=== PATIENT | male | born 1980 | race Caucasian/White ===

== ENCOUNTER 2021-07-28 17:50 | Emergency (ER) | payer BC, SELFPAY ==
--- NOTE | ~2021-07-28 | XR_ITS ---
EXAMINATION: XR RIBS, RIGHT CLINICAL INFORMATION: Low pain after blunt trauma to right ribs COMPARISON: None TECHNIQUE: Single view chest with 3 additional views of the right ribs were obtained. FINDINGS: Lungs are clear. No consolidation, pneumothorax, or pleural effusion. The cardiomediastinal silhouette and pulmonary vasculature are normal. Osseous structures are unremarkable. Ribs are intact. No fractures are identified. XR/XR ribs RT min 3V w CXR1V IMPRESSION: Unremarkable examination.
[2021-07-28 17:55] VITALS: BP 170/76; PULSE 100; RESP 18; TEMP 36.6; O2SAT 99; BMI 25.7
--- NOTE | 2021-07-28 19:33 | ED_ITS ---
HPI - Extremity Problem General Chief complaint: Extremity Injury, Upper Stated complaint: Rib pain Time Seen by Provider: 07/28/21 19:04 Source: patient Mode of arrival: ambulatory Limitations: no limitations History of Present Illness HPI Narrative: Patient presents to ED for right-sided rib cage pain. Patient st ates last week while working on a Desk he hit his right lower rib onto the edge of a desk while trying to reach for an object and to break his fall. Patient states since then he has had pain in that area and worse on movement of torso. Patient denies any coughing up blood, calf pain, recent long travel, recent surgery, or any chest pain on inspiration. Patient denies any history of blood clots. Patient states history of rib fractures. Patient denies any chest pain, abdominal pain, flank pain, fever, chills, rectal bleeding, vomitting blood or shortness of breath. Related Data Previous Rx's Medication Instructions Recorded cyclobenzaprine 10 mg tablet 10 mg PO TID PRN #18 tab 07/28/21 naproxen 500 mg tablet 500 mg PO BID PRN #20 tab 07/28/21 Allergies Allergy/AdvReac Type Severity Reaction Status Date / Time amoxicillin [AMOXICILLIN] Allergy Unknown HIVES Verified 07/28/21 19:54 Penicillins [PCN] Allergy Unknown HIVES Verified 07/28/21 19:54 Sulfa (Sulfonamide Allergy Unknown RASH Verified 07/28/21 19:54 Antibiotics) [SULFA (SULFONAMIDE ANTIBIOTICS)] Review of Systems Review of Systems: Yes all other systems are reviewed and are negative Constitutional: Constitutional: Reports as per HPI and Reports no additional constitutional complaints Eyes: Eyes: Reports as per HPI and Reports no additional eye complaints ENT: Reports system reviewed and no additional complaints, except as documented and Reports as per HPI Cardiovascular: Cardiovascular: Reports as per HPI and Reports no additional cardiovascular complaints Comments: Right sided lower rib pain Respiratory: Respiratory: Reports as per HPI and Reports no additional respiratory complaints Gastrointestinal: Gastrointestinal: Reports as per HPI and Reports no addition al gastrointestinal complaints Genitourinary: Genitourinary: Reports no additional male genitourinary complaints and Reports as per HPI Musculoskeletal: Musculoskeletal: Reports no additional musculoskeletal complaints and Reports as per HPI Neurologic: Reports system reviewed and no additional complaints, except as documented and Reports as per HPI [facility] Social History Social History Advance Directives: No Advance Directives Information Provided: No Physical Exam Vital Signs: Vital Signs: Last Vital Signs Temp 97.8 F 07/28/21 17:55 Pulse 100 07/28/21 17:55 Resp 18 07/28/21 17:55 BP 170/76 H 07/28/21 17:55 Pulse Ox 99 07/28/21 17:55 Body Mass Index 25.7 Const: General: cooperative, healthy appearing, comfortable, no acute distress, well developed, alert, awake and Physically active Orientation/consciousness: patient oriented x3 HENMT: Head: Yes normal to inspection, Yes No palpable skull fracture present, Yes normocephalic, Yes atraumatic and No abrasion Eyes: General: appearance normal, both eyes and all related structures Neck: Neck: Yes normal visual inspection, Yes full ROM, Yes no lymphadenopathy , Yes no meningeal signs, Yes trachea midline, Yes supple and No tender Chest: Chest palpation & inspection: normal inspection of the chest Chest/axillae images: 1. Positive for right lower rib tenderness on palpation and movement of torso and right upper extremity. Negative for any ecchymosis, erythema. Bilateral clear lung sounds. Resp: Effort & Inspection: normal respiratory effort and able to speak in complete sentences Auscultation: clear to auscultation bilaterally Cardio: Jugular venous distension: no JVD Heart sounds: S1 normal heart sound present and S2 normal heart sound present GI: Inspection: Yes normal to inspection and No abdominal wall ecchymosis Palpation (GI): Soft to palpation, not firm, nontender, no guarding and not rigid : General: No CVA tenderness and Yes no CVA tenderness Back/Spine/Pelvis: Back: no CVA tenderness, No CVA tenderness and No back tenderness Skin: General skin exam: no rashes or lesions noted and elasticity normal Neuro: General: patient oriented x3, gait normal and no meningeal signs C ranial nerves: Yes CN's II-XII intact bilaterally Extrem: Other: Lower extremities negative for calf swelling, pitting edema, or erythema. General: Yes normal to inspection and Yes full ROM Psych: Appearance: grossly normal, well kempt and not disheveled Course Course Course Narrative: Patient sent for right-sided rib/chest x-ray. Presently not suspecting any pneumonia, PE, CHF exacerbation or heart attack. Reevaluation(s) Reevaluation #1: X-ray negative for any fracture. Patient will be discharged with pain medication muscle relaxer. Patient informed to follow-up with PCP. Time: 20:39 MDM - Extremity (Nontraumatic) MDM Narrative Medical decision making narrative: Muscular chest wall pain. Contusion Discharge Plan Discharge Clinical Impression: Contusion of right chest wall Patient Disposition: Home, Self-Care Instructions: Contusion in Adults (ED), Rib Contusion (ED) Additional Instructions: X-ray came back negative for fractures. History physical exam indicate contusion also muscle chest wall pain. You will be discharged with pain meds and muscle relaxer. Return to the ED immediately for coughing up blood, shortne ss of breath on exertion, severe chest pain on inspiration, dizziness, headache, leg swelling, calf pain, passing out, dizziness, weakness, fever, chills, or any other concerning symptoms. Prescriptions: New naproxen 500 mg tablet 500 mg PO BID PRN (Reason: pain) Qty: 20 RF: 0 cyclobenzaprine 10 mg tablet 10 mg PO TID PRN (Reason: pain) Qty: 18 RF: 0 Interventions: ED Discharge Assessment Last Done: 07/28/21 20:49 Discharge Date/Time: 07/28/21 20:54 Print Language: Portuguese
[2021-07-28] MEDS: Ibuprofen 800 MG TABLET PO (19:55)
== END 2021-07-28 20:54 | disposition home or self-care (01) ==
PROVIDERS: Emergency Provider Internal Medicine; PCP Registered Nurse
DX: S20.211A Contusion of right front wall of thorax, initial encounter (principal); W19.XXXA Unspecified fall, initial encounter; Y93.9 Activity, unspecified; Y92.9 Unspecified place or not applicable; Y99.9 Unspecified external cause status
CPT/HCPCS: 71101; 99283

== ENCOUNTER 2022-02-01 16:21 | Outpatient (REF) | payer BC, SELFPAY ==
--- NOTE | ~2022-02-01 | XR_ITS ---
EXAMINATION: XR HAND, LEFT CLINICAL INFORMATION: Open wound of finger. COMPARISON: None TECHNIQUE: PA, lateral, and oblique views of the left hand. FINDINGS: No radiopaque foreign body. No air in the soft tissue. Bone and joints are normal. No fracture or dislocation. XR/XR hand LT min 3V IMPRESSION: Normal left hand.
== END 2022-02-01 16:22 | disposition home or self-care (01) ==
LOC: HO.HMGCX 16:21
PROVIDERS: Visit Provider Internal Medicine
DX: S61.208A Unspecified open wound of other finger without damage to nail, initial encounter (principal)
CPT/HCPCS: 73130

== ENCOUNTER 2022-07-23 23:12 | Emergency (ER) | payer BC, SELFPAY ==
[2022-07-23 23:29] VITALS: BP 130/77; PULSE 56; RESP 17; TEMP 36.3; O2SAT 99; BMI 32.1
--- NOTE | 2022-07-24 00:05 | ED.EXTPRO ---
HPI - Extremity Problem General Chief complaint: Extremity Problem Stated complaint: infection on finger Time Seen by Provider: 07/24/22 00:05 Source: patient Mode of arrival: ambulatory Limitations: no limitations History of Present Illness HPI Narrative: 42-year-old male presents with paronychia to the left 5th finger. He was treated at urgent care, given clindamycin yesterday, however the swelling has worsened. He does not report fevers or chills, or loss of sensation. MD Complaint: extremity pain and extremity swelling Onset (ago): day(s) (3) Pain Consistency: constant Location: left and upper extremity (Fifth finger) Severity scale (1-10): 4 Quality: burning and aching Radiation: none Relieving factors: nothing Exacerbating factors: range of motion and palpation Associated symptoms: denies other symptoms Related Data Previous Rx's Medication Instructions Recorded cyclobenzaprine 10 mg tablet 10 mg PO TID PRN pain #18 tabs 07/28/21 naproxen 500 mg tablet 500 mg PO BID PRN pain #20 tabs 07/28/21 levofloxacin 500 mg tablet 500 mg PO DAILY #7 tabs 02/01/22 doxycycline monohydrate 100 mg 100 mg PO BID 5 days #10 caps 07/24/22 capsule Allergies Allergy/AdvReac Type Severity Reaction Status Date / Time amoxicillin [AMOXICILLIN] Allergy Unknown HIVES Verified 07/06/22 15:49 Penicillins [PCN] Allergy Unknown HIVES Verified 07/06/22 15:49 Sulfa (Sulfonamide Allergy Unknown RASH Verified 07/06/22 15:49 Antibiotics) [SULFA (SULFONAMIDE ANTIBIOTICS)] Review of Systems Review of Systems: Constitutional: No Fever, No Chills ENT/Mouth: No Ear Pain, No Hoarseness, No sore throat Eyes: No Eye Pain, No Swelling, No Redness, No Foreign Body Cardiovascular: No Chest Pain, No SOB Respiratory: No Cough, No Dyspnea Gastrointestinal: No Nausea, No Vomiting, No Diarrhea, No abdominal Pain Genitourinary: No Dysuria, No Hematuria Musculoskeletal: positive left 5th finger pain, No Myalgias, No Joint Swelling Skin: No Skin lacerations, No rash Neuro: No Weakness, No Numbness, No Paresthesias, No Loss of Consciousness, No Dizziness, No Headache Psych: No Anxiety/Panic, No Depression Heme/Lymph: no easy bruising, no Lymphadenopathy Endocrine: No Polyuria, No Polydipsia Yes all other systems are reviewed and are negative [facility] Past Medical History Attestation statement: The following information was validated with the patient. Source: old records reviewed Social History Social History Advance Directives: No Physical Exam Vital Signs: Vital Signs: Last Vital Signs Temp 97.3 F 07/23/22 23:29 Pulse 56 07/23/22 23:29 Resp 17 07/23/22 23:29 BP 130/77 07/23/22 23:29 Pulse Ox 99 07/23/22 23:29 O2 Del Method 07/23/22 23:29 BMI result Body Mass Index 32.1 Appearance: Alert. Oriented X3. No acute distress. Eyes: Pupils equal, round and reactive to light. ENT: Pharynx normal. Neck: Normal inspection. Neck supple. CVS: Normal heart rate and rhythm. Pulses normal. Respiratory: No respiratory distress. Breath sounds normal. Abdomen: Soft and nontender. Skin: Left 5th finger paronychia, Skin warm and dry. Normal skin color. Normal skin turgor. Extremities: Gait well balanced well coordinated. Neuro: No motor deficit. No sensory deficit. Cranial nerves 2-12 intact. Course Course Course Narrative: 42-year-old male presents with paronychia to the left 5th finger. He is on clindamycin however had does have a history of Crohn's and C diff in the past. I will discontinue this medication and give him doxycycline. Paronychia was drained with an 11 blade, patient did not require any anesthetic. Approximately 1 mL purulent drainage from the site. Patient will keep the area clean and dry, and use Epsom salt soaks to help reduce infection. Patient tolerated procedure well. Verbalized understanding of signs and symptoms indicating need for emergent intervention. MDM - Extremity (Nontraumatic) MDM Narrative Medical decision making narrative: Paronychia Differential Diagnosis Differential diagnosis: Likely cellulitis Medical Records Attestation: I reviewed the patient's medical records. Procedures Abscess I/D Site: hand Side (if applicable): left (Fifth finger) Technique: incised with blade Amount of fluid expressed (mL): 1 Sent for culture/gram staining?: No Irrigation: No Packing used?: none Discharge Plan Discharge Clinical Impression: Paronychia Patient Disposition: Home, Self-Care Instructions: Paronychia (ED) Additional Instructions: You were evaluated for paronychia to the left 5th finger. We incised and drained the paronychia. Please take doxycycline 100 mg every 12 hours for the next 5 days Use Epsom salt soaks to help reduce pain and swelling. Thank you for choosing this emergency department for evaluation. Please follow-up with primary care physician as needed. Return to the emergency department for any new, concerning, or worsening symptoms. Prescriptions: New doxycycline monohydrate 100 mg capsule 100 mg PO BID 5 Days Qty: 10 0RF No Action naproxen 500 mg tablet 500 mg PO BID PRN (Reason: pain) Qty: 20 0RF cyclobenzaprine 10 mg tablet 10 mg PO TID PRN (Reason: pain) Qty: 18 0RF Rx Instructions: side effect is drowsiness. Do not take at work or while driving. levofloxacin 500 mg tablet 500 mg PO DAILY Qty: 7 0RF
== END 2022-07-24 00:59 | disposition home or self-care (01) ==
PROVIDERS: Emergency Provider Emergency Medicine Emergency Medical Services
DX: L03.012 Cellulitis of left finger (principal)
CPT/HCPCS: 10060; 99283

== ENCOUNTER 2022-10-22 23:01 | Emergency (ER) | payer BC, SELFPAY ==
[2022-10-22 23:11] VITALS: BP 130/37; PULSE 70; RESP 16; TEMP 36.6; O2SAT 97; BMI 32.7
--- NOTE | 2022-10-23 00:25 | ED.URI ---
HPI - URI/Sore Throat General Chief Complaint: Dental/Oral Stated Complaint: Sores in throat Time Seen by Provider: 10/23/22 00:16 Source: patient Mode of arrival: ambulatory Limitations: no limitations History of Present Illness HPI Narrative: 42-year-old male presents for 1 week of sore throat and feeling of blisters and ulcerations in his mouth throat and tongue. Patient does have a history of Crohn's disease, is followed by [facility]. Patient does report pain with swallowing, but is able to manage secretions and can eat and drink without too much difficulty. He does not report any fevers, chills, abdominal pain, abdominal distention, melena, hematochezia, bright red blood per rectum or weight loss. MD elicited complaint: sore throat Pertinent past history: other (Crohn's) Onset (ago): week(s) (1) Consistency: constant Severity: moderate Description of mucous: clear Able to tolerate fluids by mouth: Yes Exacerbating factors: swallowing and speaking Relieving factors: nothing Associated symptoms: denies other symptoms Treatments prior to arrival: none Related Data Previous Rx's Medication Instructions Recorded cyclobenzaprine 10 mg tablet 10 mg PO TID PRN pain #18 tabs 07/28/21 naproxen 500 mg tablet 500 mg PO BID PRN pain #20 tabs 07/28/21 levofloxacin 500 mg tablet 500 mg PO DAILY #7 tabs 02/01/22 doxycycline monohydrate 100 mg 100 mg PO BID 5 days #10 caps 07/24/22 capsule lidocaine HCl 2 % mucosal solution 10 ml PO QID PRN mouth pain 5 days 10/23/22 (Lidocaine Viscous) #100 mL valacyclovir 1 gram tablet 1,000 mg PO Q8H 7 days #21 tabs 10/23/22 Allergies Allergy/AdvReac Type Severity Reaction Status Date / Time amoxicillin [AMOXICILLIN] Allergy Unknown HIVES Verified 10/22/22 23:14 Penicillins [PCN] Allergy Unknown HIVES Verified 10/22/22 23:14 Sulfa (Sulfonamide Allergy Unknown RASH Verified 10/22/22 23:14 Antibiotics) [SULFA (SULFONAMIDE ANTIBIOTICS)] Review of Systems Review of Systems: Constitutional: No Fever, No Chills ENT/Mouth: No Ear Pain, No Hoarseness, positive sore throat, positive ulcerations Cardiovascular: No Chest Pain, No SOB Respiratory: No Cough, No Dyspnea Gastrointestinal: No Nausea, No Vomiting, No Diarrhea, No abdominal Pain Genitourinary: No Dysuria, No Hematuria Musculoskeletal: No joint pain, No Myalgias, No Joint Swelling Skin: No Skin lacerations, No rash Neuro: No Weakness, No Numbness, No Dizziness, No Headache Yes all other systems are reviewed and are negative [facility] Past Medical History Attestation statement: The following information was validated with the patient. Source: old records reviewed Social History Social History Advance Directives: No Advance Directives Information Provided: Yes Physical Exam Vital Signs: Vital Signs: Last Vital Signs Temp 98 F 10/22/22 23:11 Pulse 70 10/22/22 23:11 Resp 16 10/22/22 23:11 BP 130/37 L 10/22/22 23:11 Pulse Ox 97 10/22/22 23:11 O2 Del Method 10/22/22 23:11 BMI result Body Mass Index 32.7 Appearance: Alert. Oriented X3. No acute distress. Eyes: Pupils equal, round and reactive to light. ENT: Pharynx erythematous, aphthous ulcers noted to tongue, buccal mucosa Neck: Normal inspection. Neck supple. No cervical lymphadenopathy. No mastoid tenderness. No vertebral tenderness. Nuchal rigidity. CVS: Normal heart rate and rhythm. Pulses normal. Respiratory: No respiratory distress. Breath sounds normal. Abdomen: Soft and nontender. Skin: Skin warm and dry. Normal skin color. Normal skin turgor. Extremities: Gait well-balanced well coordinated. Neuro: No motor deficit. No sensory deficit. Cranial nerves 2-12 intact. Course Course Course Narrative: 42-year-old male presents for evaluation for ulcerations and blisters with sore throat in his mouth for 1 week. Has a history of Crohn's, has not had ulcerations in his mouth in the past. Physical exam indicates pharyngeal erythema with aphthous ulcers. No nuchal rigidity, no cervical lymphadenopathy, no mastoid tenderness. Will order strep test. Will give lidocaine and Maalox which in swallow. : strep test is negative. Patient states to have significant relief from the lidocaine Maalox solution. Will treat for aphthous ulcers with valacyclovir for 1 week. Patient does understand that he must follow up with his security installation technician in [place] for Crohn's evaluation. Patient verbalized understanding of and agrees plan for discharge home. Verbalized understanding of signs and symptoms indicating need for emergent intervention. Medications Administered Discontinued Medications Generic Name Dose Route Start Last Admin Trade Name Freq PRN Reason Stop Dose Admin Al Hydroxide/Mg Hydroxide 30 ml 10/23/22 00:25 10/23/22 00:41 Magnesium Hydrox/Alum Hydrox 30 Ml Oral.Susp PO 10/23/22 00:26 30 ml ONCE ONE Administration Lidocaine HCl 15 ml 10/23/22 00:25 10/23/22 00:41 Lidocaine Hcl Viscous 2 % 15 Ml Solution MUCOUS MEM 10/23/22 00:26 15 ml ONCE ONE Administration Medical Decision Making Differential Diagnosis Differential Diagnoses: The differential diagnosis associated with the presentation includes Strep, aphthous ulcers, URI Lab Data MDM Lab Attestation statement: I reviewed the patient's lab results. External Record Review External record reviewed: Outpatient record Prescription Management I considered prescription management with: Pain Medication and Antiviral Chronic Conditions Patient?s care impacted by: Other (Crohn's) Discharge Plan Discharge Clinical Impression: Aphthous ulcer Patient Disposition: Home, Self-Care Instructions: Oral Mucositis (ED) Additional Instructions: You were evaluated for sore throat and ulcerations in her mouth. Please take valacyclovir 1000 mg 3 times a day for the next 7 days. Please drink plenty of fluids. Use lidocaine as needed for pain management. Side effects of this medication can include a blue tinge to your skin. If you note your skin to turn blue please return to the emergency department immediately. Follow-up with your security installation technician in [place] for Crohn's follow-up. Thank you for choosing this emergency department for evaluation. Please follow-up with primary care physician as needed. Return to the emergency department for any new, concerning, or worsening symptoms. Prescriptions: New valacyclovir 1 gram tablet 1,000 mg PO Q8H 7 Days Qty: 21 0RF lidocaine HCl [Lidocaine Viscous] 2 % solution 10 ml PO QID PRN (Reason: mouth pain) 5 Days Qty: 100 0RF Rx Instructions: Dispense quantity sufficient. No Action doxycycline monohydrate 100 mg capsule 100 mg PO BID 5 Days Qty: 10 0RF naproxen 500 mg tablet 500 mg PO BID PRN (Reason: pain) Qty: 20 0RF cyclobenzaprine 10 mg tablet 10 mg PO TID PRN (Reason: pain) Qty: 18 0RF Rx Instructions: side effect is drowsiness. Do not take at work or while driving. levofloxacin 500 mg tablet 500 mg PO DAILY Qty: 7 0RF
[2022-10-23] MEDS: Magnesium Hydrox/Alum Hydrox 30 ML ORAL.SUSP PO (00:41)
[2022-10-23] MEDS: Lidocaine HCl Viscous 2 % 15 ML SOLUTION MUCOUS MEM (00:41)
[2022-10-23 01:10] LABS: IDNOW Serial# 6674DD1D; Strep A Nucleic Acid Negative (Negative)
[2022-10-23] MEDS: valACYclovir HCL 1,000 MG TABLET 1000 MG PO (01:35)
== END 2022-10-23 01:45 | disposition home or self-care (01) ==
PROVIDERS: Nurse Practitioner Family; Emergency Provider Internal Medicine
DX: J02.9 Acute pharyngitis, unspecified (principal); K12.0 Recurrent oral aphthae; Z20.822 Contact with and (suspected) exposure to COVID-19; Z20.828 Contact with and (suspected) exposure to other viral communicable diseases; Z79.899 Other long term (current) drug therapy
CPT/HCPCS: 36415; 87651; 99282